=== PATIENT | female | born 1950 | race Caucasian/White ===

== ENCOUNTER 2016-11-13 09:55 | Inpatient (IN) | payer MEDICARE, BC ==
[~2016-11-13] VITALS: Ht 170.2 cm; Wt 113.2 kg
[~2016-11-13 09:55] MED LIST: CALCIUM 500 + D1 TAB PO; CARAFATE1 G PO; DIOVAN320 MG PO; DYAZIDE 37.5/251 CAP PO; GLUCOSAMINE & C1 CAP PO; HYDROCODON-ACE1 EAC7 PO; NORVASC2.5 MG PO; PATOWN MISC; PROTONIX40 MG PO; RELAFEN500 MG PO; TALWIN NX1 TAB PO; ZOFRAN ODT4 MG/UDTAB PO
[2016-11-13 12:04] LABS: HEMATOCRIT 35.9 % (36.0-48.0); HEMOGLOBIN 12.3 g/dL (12-16); MCH 29.1 pg (26.0-34.0); MCHC 34.3 g/dL (31.0-37.0); MCV 85.1 fL (80.0-100.0); MEAN PLATELET VOLUME 9.6 fL (7.4-10.4); PLATELET COUNT 248 10x3/uL (130-400); RBC 4.22 10x6/uL (4.00-5.40); RDW 18.8 % (11.5-14.5); WBC 39.1 10x3/uL (4.8-10.8)
[2016-11-13 12:05] LABS: ALBUMIN 2.3 g/dL (3.4-5.0); ANION GAP 18.4 mmol/L (8-16); BILIRUBIN - TOTAL 1.73 mg/dL (0.2-1.3); CALCIUM 9.1 mg/dL (8.5-10.1); CARBON DIOXIDE 19.1 mmol/L (21.0-32.0); CREATININE - SERUM 1.8 mg/dL (0.6-1.3); POTASSIUM - SERUM 5.5 mmol/L (3.5-5.1); PROTEIN - SERUM 6.5 g/dL (6.4-8.2)
[2016-11-13 12:33] LABS: LYMPHOCYTES 1 % (15-50); MONOCYTES 1 % (2-11); NEUTROPHILS 87 % (40-80); PLATELET ESTIMATE NORMAL
[2016-11-13 12:57] LABS: APPEARANCE HAZY (CLEAR); COLOR DK YELLOW (YELLOW)
[2016-11-13 12:58] LABS: BILIRUBIN NEGATIVE (NEGATIVE); GLUCOSE NEGATIVE (NEGATIVE); KETONE NEGATIVE (NEGATIVE); LEUKOCYTE ESTERASE TRACE (NEGATIVE); NITRITE NEGATIVE (NEGATIVE); PROTEIN NEGATIVE (NEGATIVE); UROBILINOGEN NORMAL (NORMAL)
[2016-11-13 13:00] LABS: BACTERIA MODERATE /hpf (NONE SEEN); MUCUS <1+ /lpf (NONE SEEN); RED CELLS - URINE 25-50 /hpf (0-5); WHITE CELLS - URINE 0-5 /hpf (0-5)
--- NOTE | 2016-11-13 17:30 | NUR ---
CALLED ER TO HAVE KRISTEN GIVE ME REPORT, PER [facility] I WAS TOLD THAT THERE ARE LOTS OF AMBULANCES PULLING IN AND SHE WOULD HAVE KRISTEN CALL ME WHEN SHE WAS READY TO GIVE REPORT.
--- NOTE | 2016-11-13 18:15 | NUR ---
I WAS TOLD FROM [facility] THAT KANG CALLED AND WANTED TO KNOW WHY THE ROOM WAS NOT READY. I CALLED LOULOU (BLIND TEACHER) AND TOLD HER THAT [facility] HAD TOLD ME AT 1730 THAT THEY HAD AMBULANCE COME IN AND WOULD HAVE KRISTEN CALL ME. THE ROOM HAS BEEN READY.
--- NOTE | 2016-11-13 18:35 | NUR ---
RECEIVED VIA STRETCHER TO ROOM FOROM THE ED. BILATERAL LOWER LEGS ARE 3-4+, LEFT LEG IS FIRE RED. RIGHT LEG IS DARK PINK WITH A WEEPING SMALL AREA ON INNER MORILLO.LEFT LEG TO OUTER CALF/MORILLO WITH 2 AREAS THAT ARE WHITE BASE AND WEEPING CLEAR FLUID, THE RIGHT ONE IS. RIGHT REDDY PORT IS ACCESSED AND COVERED WITH CLEAR OPSITE, I WENT AHEAD AND DATED THIS FOR TODAY. BACKSIDE IS CLEAN, NO SKIN BREAKDOWN.
[2016-11-13 19:28] VITALS: BP 111/61
[2016-11-13] MEDS ORDERED: VENTOLIN HFA18 GM INH (19:30)
[2016-11-13] MEDS ORDERED: CHRONULAC30 ML PO (19:32)
[2016-11-13] MEDS ORDERED: DOLOPHINE HCL5 MG PO (19:33)
[2016-11-13] MEDS ORDERED: DILAUDID2 MG PO (19:33)
[2016-11-13] MEDS ORDERED: PHENERGAN25 M1 PO (19:34)
[2016-11-13] MEDS ORDERED: LASIX20 MG PO (19:35)
[2016-11-13] MEDS ORDERED: COLACE100 MG PO (19:36)
[2016-11-13] MEDS ORDERED: ALDACTONE25 MG PO (19:36)
[2016-11-13] MEDS ORDERED: XIFAXAN550 MG PO (19:38)
[2016-11-13] MEDS ORDERED: ZYPREXA10 MG PO (19:38)
[2016-11-13] MEDS ORDERED: MELATONIN10 M1 PO (19:39)
[2016-11-13] MEDS ORDERED: THERMOTABS 1 GM1 GM PO (19:39)
[2016-11-13] MEDS ORDERED: PROVERA10 MG PO (19:40)
--- NOTE | 2016-11-13 19:55 | NUR ---
ASSESSMENT COMPELTE, RESPERATIONS EVEN ON RA. RIGHT CHEST IFP SL, SITE CLEAN AND DRY. PT DENIES NEEDS, BED LOW, CL IN REACH.
[2016-11-13 21:16] VITALS: BP 100/52
--- NOTE | 2016-11-13 22:12 | NUR ---
HS MEDS GIVEN, DILAUDID GIVEN PO FOR C/O PAIN.
[2016-11-13 23:55] VITALS: BP 113/60
--- NOTE | 2016-11-14 00:41 | NUR ---
CHILD CAREGIVER AT BEDSIDE FOR VS. NEEDS ADDRESSED AT THIS TIME. CALL LIGHT IN REACH. WILL CONT TO MONITOR.
[2016-11-14 00:58] VITALS: BP 111/61; BMI 34.8
--- NOTE | 2016-11-14 02:06 | NUR ---
RESTING WITH EYES CLOSED, RESPERATIONS EVEN, NO S/S DISTRESS NOTED, WILL CONT TO MONITOR.
[2016-11-14 03:56] VITALS: BP 110/61
[2016-11-14 06:34] LABS: ANION GAP 18.1 mmol/L (8-16); CALCIUM 8.8 mg/dL (8.5-10.1); CARBON DIOXIDE 19.6 mmol/L (21.0-32.0); CREATININE - SERUM 1.8 mg/dL (0.6-1.3); POTASSIUM - SERUM 5.7 mmol/L (3.5-5.1)
[2016-11-14 07:06] LABS: BASOPHILS 0.1 % (0-2); EOSINOPHILS 0.1 % (0-7); HEMATOCRIT 33.8 % (36.0-48.0); HEMOGLOBIN 11.6 g/dL (12-16); IMMATURE GRANULOCYTES 0.5 % (0-5); LYMPHOCYTES 2.5 % (15-50); MCH 29.4 pg (26.0-34.0); MCHC 34.3 g/dL (31.0-37.0); MCV 85.6 fL (80.0-100.0); MONOCYTES 3.4 % (2-11); NEUTROPHILS 93.4 % (40-80); PLATELET COUNT 212 10x3/uL (130-400); RBC 3.95 10x6/uL (4.00-5.40); RDW 19.2 % (11.5-14.5); WBC 32.9 10x3/uL (4.8-10.8)
--- NOTE | 2016-11-14 07:18 | NUR ---
AM ROUNDS- PT IN BED, WITH EYES CLOSED, AT BEDSIDE. BEDSIDE RAILS X2, CALL LIGHT IN REACH, NAD NOTED, WILL CONTINUE TO MONITOR.
[2016-11-14 08:00] VITALS: BP 114/55
--- NOTE | 2016-11-14 08:13 | NUR ---
CALLED CAMRON AT DR CONNER'S FOR DVT COVERAGE SHE CAN NOT HAVE BILATERAL SCD'S R/T CELLULITIS. SHE WILL ASK THE DOCTOR AND IS TO CALL ME BACK.
--- NOTE | 2016-11-14 08:56 | NUR ---
DR CONNER TO CALL BACK WITH NEW ORDERS.
--- NOTE | 2016-11-14 09:22 | NUR ---
ADMINISTERED MORNING MEDS. PT AND WANT TO TALK TO CASE MANAGEMENT. DENY ANY OTHER NEEDS AT THIS TIME. WILL HAVE A COMMERCIAL LOAN COLLECTION OFFICER COME AND TALK TO THEM. NAD NOTED, CALL LIGHT IN REACH, WILL CONTINUE TO MONITOR.
[2016-11-14 11:56] VITALS: BP 98/46
[2016-11-14 12:41] VITALS: Ht 170.2 cm; Wt 113.2 kg
--- NOTE | 2016-11-14 12:56 | NUR ---
Patient Name: PAN CRONIN Admission Status: ER Accout number: [id number] Admission Date: 11-13-2016 : 1950 Admission Diagnosis: Attending: BARBARA Current LOS: 1 Anticipated DC Date: 11-16-2016 Planned Disposition: Home Primary Insurance: MEDICARE A & B Discharge Planning Comments: * Is the patient Alert and Oriented? Yes 0 * How many steps to enter\exit or inside your home? 1 W/RAMP 0 * PCP DR. CONNER 0 * Pharmacy [facility] 0 * Preadmission Environment Home with Family 0 * ADLs Independent 0 * Equipment [facility] 0 * Other Equipment [facility]- MEDICAL EQUIPMENT PROVIDER PREFERENCE 0 * List name and contact numbers for known caregivers / representatives who currently or will assist patient after discharge: MR. YOUNG, SPOUSE, 0 * Community resources currently utilized None 0 * Please name any agencies selected above. NONE 0 * Additional services required to return to the preadmission environment? No 0 * Can the patient safely return to the preadmission environment? Yes 0 * Has this patient been hospitalized within the prior 30 days at any hospital? Yes 0 CM RECEIVED REQUEST FROM BEDSIDE NURSE TO MEET WITH PT REGARDING INSURANCE QUESTIONS. CM MET WITH PT AND SPOUSE IN ROOM TO DISCUSS DISCHARGE PLANNING AND NEEDS. PT CONCERNED THAT HER MEDICATIONS ARE NOT COVERED WHILE IN HOSPITAL; CM EXPLAINED THAT INPATIENT, HER MEDICATIONS ARE COVERED IN THE HOSPITAL. PT REPORTS LIVING AT HOME INDEPENDENTLY WITH HER SPOUSE. PT HAS CANE AND WALKER FROM [facility]. PT HAS NO OUTSIDE SERVICES ASSISTING IN THE HOME. CM DISCUSSED AVAILABILITY OF HOME HEALTH, REHAB SERVICES AND MEDICAL EQUIPMENT. PT DENIES DISCHARGE NEEDS, REPORTS HER SPOUSE WILL PICK HER UP FOR DISCHARGE HOME. IMPORTANT MESSAGE FROM MEDICARE PROVIDED AND EXPLAINED. PT IS CONSIDERING HOSPICE WITH [facility] AT HOME, IF DECIDING TO HAVE IT, IT WILL BE ARRANGED THROUGH HER DOCTOR AT [facility]. PT AND SPOUSE DENY DISCHARGE NEEDS AT THIS TIME. PT PLANS TO DISCHARGE HOME WITH SPOUSE, DENIES DISCHARGE NEEDS AT THIS TIME. CM TO FOLLOW AND ASSIST IF NEEDED. Library Page: Jamie Dawson
[2016-11-14 17:48] VITALS: BP 109/58; BP 114/55
[2016-11-14 19:00] VITALS: BP 107/59
--- NOTE | 2016-11-14 21:09 | NUR ---
HS MEDS GIVEN WITH FRESH ICE WATER.
--- NOTE | 2016-11-14 23:40 | NUR ---
DILAUDID 0.5 MG GIVEN AT PT REQUEST FOR C/O PAIN, RATES PAIN AT A 7 ON PAIN SCALE.
[2016-11-15] VITALS: BP 109/60
--- NOTE | 2016-11-15 00:38 | NUR ---
ANSWERED CL, PT ASKING FOR PAIN MEDS, INFORMED HER THAT I GAVE HER PAIN MEDS AT 11:40 AND CANT GIVE HER ANY MORE FOR 3 MORE HOURS. ASKED PT WHERE SHE WAS HURTING, PT STATED IN HER STOMACH, PHENERGAN 25 MG AND TYLENOL 650 MG GIVEN. BABY POWDER APPLIED TO UPPER LEGS AT PT REQUEST. PTS AT BED SIDE, BED LOW, CL IN REACH.
[2016-11-15 04:00] VITALS: BP 109/59
[2016-11-15 06:12] LABS: BASOPHILS 0 % (0-2); EOSINOPHILS 0.1 % (0-7); HEMATOCRIT 31.8 % (36.0-48.0); HEMOGLOBIN 11.1 g/dL (12-16); IMMATURE GRANULOCYTES 0.4 % (0-5); LYMPHOCYTES 3.7 % (15-50); MCH 28.8 pg (26.0-34.0); MCHC 34.9 g/dL (31.0-37.0); MCV 82.4 fL (80.0-100.0); MEAN PLATELET VOLUME 9.4 fL (7.4-10.4); MONOCYTES 6.5 % (2-11); NEUTROPHILS 89.3 % (40-80); PLATELET COUNT 197 10x3/uL (130-400); RBC 3.86 10x6/uL (4.00-5.40); RDW 18.7 % (11.5-14.5); WBC 21.6 10x3/uL (4.8-10.8)
[2016-11-15 06:44] LABS: ALBUMIN 1.8 g/dL (3.4-5.0); ANION GAP 16.6 mmol/L (8-16); BILIRUBIN - TOTAL 1.1 mg/dL (0.2-1.3); CALCIUM 8.3 mg/dL (8.5-10.1); CARBON DIOXIDE 19.3 mmol/L (21.0-32.0); CREATININE - SERUM 1.7 mg/dL (0.6-1.3); POTASSIUM - SERUM 4.9 mmol/L (3.5-5.1); PROTEIN - SERUM 5.1 g/dL (6.4-8.2)
--- NOTE | 2016-11-15 07:15 | NUR ---
AM ROUNDS- PT IN BED, DENIES ANY NEEDS AT THIS TIME. BEDSIDE RAILS X2, BED LOW AND LOCKED, CALL LIGHT IN REACH, AT BEDSIDE, NAD NOTED, WILL CONTINUE TO MONITOR.
--- NOTE | 2016-11-15 07:15 | NUR ---
AM ROUNDS- PT IN BED, DR. CONNER AT BEDSIDE, BED LOW AND LOCKED, CALL LIGHT IN REACH, BEDSIDE RAILS X3. AT BEDSIDE, NAD NOTED, WILL CONTINUE TO MONITOR.
[2016-11-15 08:00] VITALS: BP 108/60
--- NOTE | 2016-11-15 08:59 | NUR ---
AM MEDS GIVEN AT THIS TIME. PT IN BED, EXPLAINED REASON FOR BEING PLACED ON ISOLATION, ALSO EXPLAINED TO AT BEDSIDE. PT DENIES ANY NEEDS AT THIS TIME. CALL LIGHT IN REACH, NAD NOTED, WILL CONTINUE TO MONITOR.
--- NOTE | 2016-11-15 11:15 | NUR ---
RECEIVED CALL FROM PT'S DAUGTHER, CLINTON GOODRICH, WANTED DR. CONNER'S NUMBER, PROVIDED HER WITH DR. CONNER'S OFFICE NUMBER. JOVON ALSO STATED THAT PT IS A DNR, TO TALK TO PT AND TO MAKE SURE IT GETS PUT ON FILE.
[2016-11-15 12:00] VITALS: BP 116/58
[2016-11-15 15:39] VITALS: BP 113/63
--- NOTE | 2016-11-15 18:10 | NUR ---
INFORMED PT AND THAT THEIR DAUGTHER CLINTON HAD CALLED AND INFORMED ME THAT PT WAS A DNR AT [facility] AND THAT SHE NEEDED TO BE A DNR HERE. PT STATED "YES I WANT TO BE A DNR". AT [facility] ALSO SHOOK HEAD YES. TOLD PT AND TO LET DR. CONNER KNOW IN THE AM THAT SHE WANTS TO BE DNR, I WILL PLACE FORM ON CHART FOR DR. CONNER TO SIGN IN THE THE AM.
[2016-11-15 19:00] VITALS: BP 110/61
--- NOTE | 2016-11-15 19:30 | NUR ---
RECEIVED REPORT, DENIES ANY NEEDS, BED IS LOW, SRX2, AT BEDSIDE, CALL LIGHT IN REACH, WILL CONTINUE PLAN OF CARE
--- NOTE | 2016-11-15 20:27 | NUR ---
CENTER LINE CUTTER OPERATOR AT BEDSIDE TO OBTAIN VITALS, CALL LIGHT IN REACH. WILL CONTINUE WITH PLAN OF CARE. 99 SR ON TELEMETRY
--- NOTE | 2016-11-15 21:11 | NUR ---
GAVE 0.5 DIDULID PER PT REQUEST
[2016-11-16] VITALS: BP 109/60
[2016-11-16 04:00] VITALS: BP 114/71
[2016-11-16 05:48] LABS: BASOPHILS 0.1 % (0-2); EOSINOPHILS 0.9 % (0-7); HEMATOCRIT 34.4 % (36.0-48.0); IMMATURE GRANULOCYTES 0.9 % (0-5); LYMPHOCYTES 4.1 % (15-50); MCH 28.8 pg (26.0-34.0); MCHC 34.9 g/dL (31.0-37.0); MCV 82.7 fL (80.0-100.0); MEAN PLATELET VOLUME 10.2 fL (7.4-10.4); MONOCYTES 13.4 % (2-11); NEUTROPHILS 80.6 % (40-80); PLATELET COUNT 223 10x3/uL (130-400); RBC 4.16 10x6/uL (4.00-5.40); RDW 18.6 % (11.5-14.5)
[2016-11-16 06:10] LABS: ANION GAP 15.2 mmol/L (8-16); CALCIUM 8.6 mg/dL (8.5-10.1); CARBON DIOXIDE 20.5 mmol/L (21.0-32.0); POTASSIUM - SERUM 4.7 mmol/L (3.5-5.1); VANCOMYCIN - RANDOM 18.2 ug/mL (10.0-20.0)
[2016-11-16 06:18] LABS: CREATININE - SERUM 1.2 mg/dL (0.6-1.3)
--- NOTE | 2016-11-16 07:30 | NUR ---
PT RESTING QUIETLY, REQUEST SHOWER FOR LATER TODAY. INTRODUCED SELF PRIMARY CAREGIVER FOR THE DAY. FAMILY PRESENT AT BEDSIDE. RR EVEN AND UNLABORED, CALL LIGHT IN REACH, WILL CTM.
[2016-11-16 08:27] VITALS: BP 108/67
[2016-11-16 11:55] VITALS: BP 111/66
[2016-11-16 15:11] VITALS: BP 106/70
--- NOTE | 2016-11-16 16:55 | NUR ---
PT PLACED BACK IN BED FROM CHAIR, FLOOR FREE FROM CLUTTER, PT ENCOURAGED TO CALL FOR ASSISTANCE WHEN NEEDED, FALL SOCKS OFFERED, WILL CTM.
--- NOTE | 2016-11-16 18:43 | NUR ---
PT RESTING QUIETLY IN BED, RR EVEN AND UNLABORED, DENIES NEEDS AT THIS TIME. WILL GIVE REPORT ON PT CONDITION FOR THE DAY.
[2016-11-16 19:00] VITALS: BP 108/67
[2016-11-17] VITALS: BP 112/78
[2016-11-17 04:00] VITALS: BP 112/76
[2016-11-17 06:26] LABS: BASOPHILS 0.2 % (0-2); EOSINOPHILS 0.8 % (0-7); HEMATOCRIT 37.2 % (36.0-48.0); HEMOGLOBIN 12.9 g/dL (12-16); IMMATURE GRANULOCYTES 2.5 % (0-5); LYMPHOCYTES 6.4 % (15-50); MCH 28.6 pg (26.0-34.0); MCHC 34.7 g/dL (31.0-37.0); MCV 82.5 fL (80.0-100.0); MEAN PLATELET VOLUME 9.7 fL (7.4-10.4); NEUTROPHILS 75.1 % (40-80); PLATELET COUNT 208 10x3/uL (130-400); RBC 4.51 10x6/uL (4.00-5.40); RDW 18.5 % (11.5-14.5); WBC 12.6 10x3/uL (4.8-10.8)
[2016-11-17 06:52] LABS: ALBUMIN 1.9 g/dL (3.4-5.0); ANION GAP 11.9 mmol/L (8-16); BILIRUBIN - TOTAL 1.4 mg/dL (0.2-1.3); CALCIUM 8.6 mg/dL (8.5-10.1); CARBON DIOXIDE 20.7 mmol/L (21.0-32.0); CREATININE - SERUM 1.2 mg/dL (0.6-1.3); POTASSIUM - SERUM 4.6 mmol/L (3.5-5.1); PROTEIN - SERUM 6.2 g/dL (6.4-8.2); VANCOMYCIN - TROUGH 20.2 ug/mL (10.0-20.0)
--- NOTE | 2016-11-17 07:43 | NUR ---
PT RESTING QUIETLY, FAMILY AT BEDSIDE. BED IN LOWEST POSTION, CALL LIGHT IN REACH, FALL SOCKS OFFERED. RR EVEN AND UNLABORED. INTRODUCED SELF PRIMARY RN FOR THE DAY, WILL CTM.
[2016-11-17 08:44] VITALS: BP 124/72
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
[2016-11-17 12:00] VITALS: BP 109/72
--- NOTE | 2016-11-17 12:12 | NUR ---
DRESSING CHANGE COMPLETED. WOUND CLEANSER USED, PAT DRIED. MAXORB AG APLLIED OVER WOUND BED, SECURED WITH 4X4 AND STOCKINGETTE.
--- NOTE | 2016-11-17 13:29 | NUR ---
Nutrition follow-up: Diet: Regular vegetarian PO intake ~70% average of last 9 meals Labs reviewed +BM Wt:225# RDN following.
--- NOTE | 2016-11-17 13:39 | NUR ---
PT UP WITH PHYSCIAL THERAPY. BED CHANGE COMPLETE, PT TRANSFERRED TO THE BATHROOM. DENIES OTHER NEEDS AT THIS TIME. WILL CTM.
[2016-11-17 18:24] VITALS: BP 117/67
[2016-11-17 19:00] VITALS: BP 109/69
--- NOTE | 2016-11-17 19:15 | NUR ---
RECEIVED REPORT, WILL ASSUME CARE OF PT, AT BEDSIDE, PT IS ALERT AND ORIENTATED, DENIES ANY NEEDS, BED IS LOW, SRX2,CALL LIGHT IN REACH, WILL CONTINUE PLAN OF CARE
[2016-11-18 04:00] VITALS: BP 107/75
[2016-11-18 06:52] LABS: BASOPHILS 0.4 % (0-2); EOSINOPHILS 0.8 % (0-7); HEMATOCRIT 35.9 % (36.0-48.0); HEMOGLOBIN 12.5 g/dL (12-16); IMMATURE GRANULOCYTES 3.7 % (0-5); LYMPHOCYTES 4.8 % (15-50); MCHC 34.8 g/dL (31.0-37.0); MCV 83.3 fL (80.0-100.0); MEAN PLATELET VOLUME 10.4 fL (7.4-10.4); MONOCYTES 15.6 % (2-11); NEUTROPHILS 74.7 % (40-80); PLATELET COUNT 203 10x3/uL (130-400); RBC 4.31 10x6/uL (4.00-5.40); RDW 18.5 % (11.5-14.5); WBC 15.4 10x3/uL (4.8-10.8)
--- NOTE | 2016-11-18 07:00 | NUR ---
RECEIVED REPORT. ASSUMED CARE OF PATIENT. SITTING IN BED. RESP EVEN AND UNLABORED. PITTING EDEMA TO BILATERAL LOWER EXTREMITIES. ABD DISTENDED, SLIGHT ASCITES. AT BEDSIDE AND ASSISTING PATIENT TO RESTROOM. DENIES NEEDS AT THIS TIME. NO DISTRESS. REMAINS IN CONTACT ISOLATION.
[2016-11-18 07:19] LABS: ANION GAP 17.3 mmol/L (8-16); CALCIUM 8.3 mg/dL (8.5-10.1); CARBON DIOXIDE 19.1 mmol/L (21.0-32.0); CREATININE - SERUM 1.2 mg/dL (0.6-1.3); POTASSIUM - SERUM 4.4 mmol/L (3.5-5.1)
[2016-11-18 08:00] VITALS: BP 94/69
[2016-11-18 12:00] VITALS: BP 115/67
--- NOTE | 2016-11-18 12:40 | NUR ---
1145 PATIENT PLACED IN SHOWER. THIS CLINICAL SUPPORT TECH SHOWERED PATIENT AND COMPLETE LINEN CHANGE PROVIDED AT THIS TIME. TOLERATED SHOWER WELL. NEW DRESSING PLACED TO LEFT LOWER LATERAL LEG. RESP EVEN AND UNLABORED. PATIENT IS RESTING AT THIS TIME WITH EYES CLOSED. PATIENT SPOUSE AT BEDSIDE. NO DISTRESS.
--- NOTE | 2016-11-18 15:30 | NUR ---
CENTRAL LINE DRESSING CHANGED TO RIGHT CHEST INFUSAPORT DRESSING COMING LOOSE FROM CHEST. DRESSING CHANGE VIA STERILE TECHNIQUE. PATIENT TOLERATED DRESSING CHANGE WELL. SWAB CAPS PRESENT ON ALL HUBS. BIOPATCH VISIBLE THROUGH WINDOW OF DRESSING.
[2016-11-18 16:00] VITALS: BP 120/68
--- NOTE | 2016-11-18 17:40 | NUR ---
MEDICATED FOR PAIN AT THIS TIME. NO DISTRESS.
--- NOTE | 2016-11-18 17:58 | NUR ---
PATIENT OOB TO WHEELCHAIR. PATIENTS PUSHING PATIENT AROUND TO GET HER OUT OF ROOM. NO DISTRESS.
[2016-11-18 20:00] VITALS: BP 123/74
--- NOTE | 2016-11-18 20:18 | NUR ---
PT RESTING IN BED WITH AT BEDSIDE. ALERT/ORIENTED. STATES SHE NEEDS HER PAIN PILL SIRISHA. REVIEWED MEDS AND NEXT DOSE AVAILABLE FOR DILAUDID IS AT 2330. ASKED PT IS SHE WOULD LIKE THE PRN METHADONE, THERE IS NO INDICATION THAT SHE HAS TAKEN A DOSE SINCE SUNDAY MORNING. SAYING SHE IS RECIEVING IT AT 0600 AND 1800 EVERY DAY WHEN AT HOME. EXPLAINED THAT IT IS LISTED ON AN NEEDED BASIS, AND DOSE CAN BE BROUGHT NOW. SPOUSE SEEMS TO BE UNDER THEN IMPRESSION THAT SHE HAS BEEN GETTING THE METHADONE/ALTERNATING WITH THE PO DILAUDID. RIGHT CW IMPLANTED PORT WITH NS @ 100ML/HR. LEFT LEG WITH DRESSING C/D/I. CPOC.
--- NOTE | 2016-11-19 03:25 | NUR ---
MEDICATED PATIENT WITH PHENERGAN BY MOUTH AND DILAUDID 2MG BY MOUTH TO PROMOTE OPTIMAL COMFORT. PT CLEAN AND DRY. IVF INFUSING. CALL LIGHT IN REACH. FAMILY MEMBER X 1 AT BEDSIDE. CPOC.
[2016-11-19 04:00] VITALS: BP 141/75
[2016-11-19 08:00] VITALS: BP 129/66
--- NOTE | 2016-11-19 08:07 | NUR ---
ASSESSMENT COMPLETED. PT IS IN SOLATION. ROOM AIR. NO TELEMERTY. RIGHT IP WITH NS A T 125. EDEMA TO LOWER EXTERMITIES. FAMILY AT BEDSIDE. NO PAIN AT PRESENT TIME. WILL MONITOR. SR UP WITH CALL LIGHT IN REACH
[2016-11-19 11:35] VITALS: BP 153/80
--- NOTE | 2016-11-19 13:03 | NUR ---
DRSG CHANGE TO LEFT LEG. DENIES ANY NEEDS. CALL LIGHT IN REACH. WITH SR UP. WILL MONITOR
--- NOTE | 2016-11-19 14:41 | NUR ---
LYING QUIETLY. DENIES AND NEEDS. FAMILY AT BEDSIDE. WILL MONITOR
[2016-11-19 15:43] VITALS: BP 121/69
[2016-11-19 20:00] VITALS: BP 129/68
--- NOTE | 2016-11-19 20:00 | NUR ---
PT RESTING IN BED WITH FLAT/BLUNTED AFFECT. MINIMAL TALKING TO NURSE. HAS BEEN REFUSING PAIN MEDS ALL DAY. RIGHT IMPLANTED PORT WITH NS @ 100ML/HR INFUSING TO RIGHT IMPLANTED PORT. SEE ASSESSMENT AND CPOC.
--- NOTE | 2016-11-19 21:16 | NUR ---
PT'S CAME TO NURSE AND SAID SHE HAS NOW AGREED TO TAKE A PAIN PILL. BEDTIME MEDS + DILAUDID 2MG BY MOUTH GIVEN. CALL LIGHT IN REACH. BED ALARM ACTIVATED. CPOC.
[2016-11-20 04:00] VITALS: BP 132/72
--- NOTE | 2016-11-20 08:32 | NUR ---
ASSESSMENT DONE. DENIES NEEDS.
[2016-11-20 08:40] VITALS: BP 106/64
--- NOTE | 2016-11-20 10:42 | NUR ---
RESTS IN ISOLTION ROOM. IV PATENT. NO NEEDS VOICED. WILL CONT. PLAN OF CARER.
[2016-11-20 12:39] VITALS: BP 114/66
[2016-11-20 16:51] VITALS: BP 116/73
--- NOTE | 2016-11-20 17:12 | NUR ---
Patient Name: PAN CRONIN Encounter No: [id number] : 1950 Primary Insurance: MEDICARE A & B Anticipated DC Date: 11-21-2016 Planned Disposition: Home WITH HOME HEALTH External Planned Provider: [facility] DCP follow-up note: CM RECEIVED HOME HEALTH ORDER, MET WITH PT AND SPOUSE IN ROOM, DISCUSSED ORDER AND DISCHARGE NEEDS. PT AND SPOUSE CHOSE [facility], IMPORTANT MESSAGE FROM MEDICARE PROVIDED AND DISCUSSED, BOTH IN AGREEMENT WITH DISCHARGE PLAN OF HOME WITH HOME HEALTH TOMORROW, SPOUSE TO TRANSPORT PT HOME. CM CALLED [facility], , PROVIDED REFERRAL TO [facility], FAXED REFERRAL TO [facility] AT [phone]. FOR DISCHARGE, NOTIFY [facility] MOLD CAPPER HELPER NURSE AT [phone], FAX DISCHARGE INFORMATION TO [facility] AT [phone]. Jamie Dawson, CASE MANAGEMENT
--- NOTE | 2016-11-20 17:29 | NUR ---
WITHOUT CHANGES OR DISTRESS NOTED AT THIS TIME. DENIES NEEDS.
[2016-11-20 19:00] VITALS: BP 132/81
--- NOTE | 2016-11-20 19:38 | NUR ---
PT IN ROOM WITH . 1 PERSON ASSIT TO GET INTO BED. LEGS BILATERAL WEEPING EDEMA. NORMAL SALINE AT 100ML/HR INFUSING THROUGH IP. PT DENIES ANY NEEDS. NO S/S OF DISTRESS. WILL CONTINUE TO MONITOR
[2016-11-21] VITALS: BP 114/65
[2016-11-21 04:00] VITALS: BP 122/77
--- NOTE | 2016-11-21 04:01 | NUR ---
PT GOT A NOSE BLEED IN RIGHT NARE WHEN GETTING UP TO USE THE BATHROOM. APPLIED PRESSURE AND IT STOPPED. PT NOW IN BED NO S/S OF DISTRESS. PT DENIES ANY NEEDS
--- NOTE | 2016-11-21 06:26 | NUR ---
PT RESTING IN ROOM. AT BED SIDE, PT DENIES ANY NEEDS. NO S/S OF DISTRESS. WILL CONTINUE TO MONITOR
--- NOTE | 2016-11-21 07:35 | NUR ---
AM ROUNDS - PT RESTING QUIETLY. RR EVEN AND UNLABORED. FAMILY AT BEDSIDE. MAMTA REPORTS PT HAD LOOSE BM X6 YESTERDAY. SAAD MENDES REPORTED THAT SHE SENT A SAMPLE TO LAB TO CHECK FOR C-DIFF. WILL CTM.
[2016-11-21 08:23] VITALS: BP 128/64
[2016-11-21] MEDS ORDERED: VIBRAMYCIN 100100 MG PO (10:59)
--- NOTE | 2016-11-21 12:14 | NUR ---
Patient Name: PAN CRONIN Encounter No: [id number] : 1950 Primary Insurance: MEDICARE A & B Anticipated DC Date: 11-21-2016 Planned Disposition: Home WITH HOME HEALTH External Planned Provider: [facility] DCP follow-up note: CM RECEIVED DISCHARGE ORDER, CALLED [facility], , PROVIDED DISCHARGE INFORMATION TO FRANKI, FAXED DISCHARGE INFORMATION TO [place] AT [phone]. FRANKI INFORMED CM THAT PT IS ON HOME HEALTH SCHEDULE FOR TOMORROW. PT AND SPOUSE NOTIFIED IN ROOM; PT'S SPOUSE TO TRANSPORT PT HOME TODAY. Jamie Dawson, CASE MANAGEMENT
--- NOTE | 2016-11-21 12:36 | NUR ---
PT DISCHARGED. DISCHARGE INSTRUCTIONS PROVIDED, FAMILY AND PT VERBALIZED UNDERSTANDING. PORT ACCESS REMOVED WITH NEEDLE INTACT. SITE DRESSED. FAMILY WILL TAKE PT HOME. WILL CALL FOR TRANSPORT VIA WHEELCHAIR.
[2016-11-21 12:40] VITALS: BP 101/44
== END 2016-11-21 13:17 | disposition home health service (06) | DRG 872 ==
LOC: D.ER 09:55 → D.M2 16:25 → D.SDCHOLD 11-15 13:36 → D.M2 11-15 13:40
PROVIDERS: Emergency Medicine; Nurse Practitioner Acute Care; ADMIT Family Medicine
DX: A41.9 Sepsis, unspecified organism (principal); L03.116 Cellulitis of left lower limb; C78.7 Secondary malignant neoplasm of liver and intrahepatic bile duct; E87.1 Hypo-osmolality and hyponatremia; B96.1 Klebsiella pneumoniae [K. pneumoniae] as the cause of diseases classified elsewhere; C50.919 Malignant neoplasm of unspecified site of unspecified female breast; E11.9 Type 2 diabetes mellitus without complications; I10 Essential (primary) hypertension; Z66 Do not resuscitate